=== PATIENT | male | born 1995 | race Caucasian/White ===

== ENCOUNTER 2019-05-28 10:24 | Emergency (ER) | payer OTHER ==
[~2019-05-28] VITALS: Ht 195.6 cm; Wt 103.4 kg
[2019-05-28 10:27] VITALS: BP 156/98; Ht 195.6 cm; Wt 103.4 kg
== END 2019-05-28 10:48 | disposition home or self-care (01) ==
LOC: ED 10:24
DX: J36 Peritonsillar abscess (principal)

== ENCOUNTER 2020-08-11 13:07 | Emergency (ER) | payer BC, OTHER ==
[~2020-08-11] VITALS: Ht 200.7 cm; Wt 105.7 kg
[2020-08-11 13:18] VITALS: Ht 200.7 cm; Wt 105.7 kg
[2020-08-11 16:30] VITALS: BP 128/74
== END 2020-08-11 16:30 | disposition home or self-care (01) ==
LOC: ED 13:07
DX: F12.180 Cannabis abuse with cannabis-induced anxiety disorder (principal); I45.4 Nonspecific intraventricular block; Z90.49 Acquired absence of other specified parts of digestive tract
CPT/HCPCS: Q0162